=== PATIENT | female | born 1980 | race Caucasian/White ===

== ENCOUNTER 2016-12-16 17:24 | Emergency (ER) | payer OTHER ==
[~2016-12-16 17:24] MED LIST: ALLEGRA60 MG PO; BACTRIM DS TABL1 TA1 PO; CIPRO PO; DIFLUCAN PO; FIORICET W/CODE1 CAP PO; FLAGYL PO; FLEXERIL10 M1 PO; FLEXERIL10 MG PO; IBUPROFEN PO; IBUPROFEN800 MG PO; ILOTYCIN1 GM OD; KEFLEX500 MG PO; KETOPROFEN PO; LEVAQUIN750 MG PO; LORTAB 10-5001 EACH PO; MEDROL4 MG/DOSE- PO; MOTRIN400 MG PO; MOTRIN600 M1 PO; MOTRIN600 MG PO; NAPROSYN250 M1 PO; NO MEDICATIONS; ORUDIS75 M1 DOB; PEPCID AC20 M1 PO; PHENERGAN12.5 MG DOB; PHENERGAN25 M1 PO; PHENERGAN25 MG PO; PREDNISONE PO; PRILOSEC10 M1 PO; PROTONIX PO; PYRIDIUM100 MG PO; ROBITUSSIN A-C S5 ML PO; ULTRAM PO; VIBRAMYCIN100 M1 PO; VICODIN 5/1 TAB 5/50 PO; VICODIN 5/500 T1 TAB PO; ZITHROMAX PO; ZITHROMAX1 G/PKT PO; ZOFRAN2 MG/M1 IM; ZOFRANODT PO
[2016-12-16 19:14] LABS: URINE SOURCE CLEAN CATCH
[2016-12-16 19:23] LABS: URINE APPEARANCE CLEAR; URINE BILIRUBIN NEG (NEG); URINE BLOOD 2+ (NEG); URINE COLOR YELLOW; URINE GLUCOSE NEG (NEG); URINE KETONE NEG (NEG); URINE LEUKOCYTE ESTERASE 2+ (NEG); URINE NITRATE NEG (NEG); URINE PROTEIN 1+ (NEG); URINE SPECIFIC GRAVITY 1.024 (1.003-1.035)
[2016-12-16 19:25] LABS: CULTURE INDICATED? YES; URBCS1 AUWI 25-50 /[HPF] (0-2); URINE BACTERIA AUWI 1+ (NEGATIVE)
[2016-12-16 19:32] LABS: URINE MUCUS PRESENT; URINE SQUAMOUS EPITHELIAL CELL MODERATE /[HPF]
[2016-12-16 19:33] LABS: UWBCS1 AUWI 50-100 (0-5)
== END 2016-12-16 20:07 | disposition home or self-care (01) ==
LOC: CED 17:24 → CFTX 17:24
PROVIDERS: Physician Assistant
DX: N39.0 Urinary tract infection, site not specified (principal); K21.9 Gastro-esophageal reflux disease without esophagitis; F17.210 Nicotine dependence, cigarettes, uncomplicated; Z90.49 Acquired absence of other specified parts of digestive tract; Z88.0 Allergy status to penicillin
CPT/HCPCS: 81003; 84703; 87086; 99283